=== PATIENT | female | born 1970 | race American Indian/Alaskan Native ===

== ENCOUNTER 2017-07-28 07:04 | Emergency (ER) | payer MEDICARE ==
[2017-07-28] MEDS ORDERED: ULTRAM PO ONE (07:50)
[2017-07-28] MEDS ORDERED: CATAPRES PO ONE (07:50)
[2017-07-28] MEDS ORDERED: TORADOL IV ONE (07:50)
[2017-07-28] MEDS ORDERED: TORADOL IM ONE (07:54)
--- NOTE | 2017-07-28 08:10 | Emergency Department Report ---
ED Extremity Problem HPI - General Chief complaint: Neuro Symptoms/Deficit Stated complaint: LEG/ARM PAIN Time Seen by Provider: 07/28/17 07:37 Source: patient, EMS Mode of arrival: Stretcher Limitations: Physical Limitation - History of Present Illness Initial comments: 46-year-old female with a past medical history asthma, hypertension, alcohol abuse, cocaine abuse, depression, TIAs, and elevated cholesterol presents to the hospital complaints of bilateral leg pain. Patient states since 10:30 PM last night both her legs felt tight and throbbing/burning. Pain is intermittent , rated 10/10 intensity, worse with ambulation and movement. No specific alleviating factor reported. Denies back pain, dysuria, or incontinence. Patient also has chronic right sided weakness and numbness and reports no change. Patient is currently at [facility] x 5 days after d/c from inpatient treatment and receiving treatment for substance abuse and depression. She states she has not used any substances since and enrolled in treatment. Patient presents with elevated blood pressure. Recently restarted her BP meds after being provided samples. Patient took her last dose of lisinopril/ hydrochlorothiazide 20/25mg yesterday. - Related Data Previous Rx's Medication Instructions Recorded Last Taken Type Ibuprofen [Motrin] 800 mg PO Q8HR PRN #30 tablet 07/28/17 Unknown Rx Allergies Allergy/AdvReac Type Severity Reaction Status Date / Time Sulfa (Sulfonamide Allergy Rash Verified 07/28/17 07:17 Antibiotics) ED Review of Systems ROS: Stated complaint: LEG/ARM PAIN Other details as noted in HPI Comment: All other systems reviewed and negative Other: Constitutional: No fevers chills Eyes: No eye pain visual changes ENT: No ear pain or throat pain Neck: Denies pain Respiratory: Denies cough wheezing shortness of breath Cardiovascular: Denies chest pain, palpitations, syncope GI: Denies abdominal pain : Denies dysuria Musculoskeletal: as per hpi Skin: Denies rash, lesions, erythema Neurologic: Denies headache Psychiatric: Denies suicidal ideation, hallucinations ED Past Medical Hx - Past Medical History Previous Medical History?: Yes Hx Hypertension: Yes Hx Psychiatric Treatment: Yes (ETOH abuse, cocaine abuse, depression) Hx Asthma: Yes Additional medical history: TIA's. high cholesterol - Surgical History Past Surgical History?: Yes Additional Surgical History: x4. Tubal ligation. Partial hysterectomy - Social History Smoking Status: Current Every Day Smoker Substance Use Type: Alcohol, Cocaine - Medications Home Medications: Home Medications Medication Instructions Recorded Confirmed Last Taken Type Ibuprofen [Motrin] 800 mg PO Q8HR PRN #30 tablet 07/28/17 Unknown Rx ED Physical Exam - General Limitations: Physical Limitation - Other Other exam information: General: No limitations, patient is alert in no acute distress Head exam: Atraumatic, normocephalic Eyes exam: Normal appearance, pupils equal reactive to light, extraocular movements intact ENT: Moist mucous membrane, normal oropharynx Neck exam: Normal inspection, full range of motion, no meningismus nontender Respiratory exam: Clear to auscultation bilateral, no wheezes, rales, crackles Cardiovascular: Normal rate and rhythm, normal heart sounds Abdomen: Soft, nondistended, and nontender, with normal bowel sounds, no rebound, or guarding Extremity: Full range of motion normal inspection no deformity, 2+ DP pulse, no tenderness to palpation, no edema, no calf tenderness Back: Normal Inspection, full range of motion, no tenderness Neurologic: Alert, oriented x3, cranial nerves intact, right arm and leg for 4/ 5 strength, decreased sensation on the right to light touch. Patient states these symptoms are chronic. Left arm and leg 5/5 strength. Akjomu-[id number]-[id number] function intact. No facial droop Psychiatric: normal affect, normal mood Skin: Warm, dry, intact ED Course Vital Signs 07/28/17 07/28/17 07/28/17 07:16 07:17 07:30 Temperature 98.6 F Pulse Rate 77 69 Respiratory 18 13 Rate Blood Pressure 161/105 161/105 O2 Sat by Pulse 96 99 100 Oximetry 07/28/17 07/28/17 07/28/17 08:00 08:30 08:45 Temperature Pulse Rate 70 69 69 Respiratory 13 13 10 L Rate Blood Pressure 171/109 169/114 151/101 O2 Sat by Pulse 100 97 Oximetry 07/28/17 07/28/17 07/28/17 08:46 08:50 09:00 Temperature Pulse Rate 73 Respiratory 12 12 16 Rate Blood Pressure 163/101 O2 Sat by Pulse 99 Oximetry 07/28/17 07/28/17 09:30 09:41 Temperature Pulse Rate 71 Respiratory 12 10 L Rate Blood Pressure 169/114 O2 Sat by Pulse 99 97 Oximetry - Reevaluation(s) Reevaluation #1: 07/28/17 10:09 tramadol refused, pain better with toradol ED Medical Decision Making - Lab Data Result diagrams: 07/28/17 08:12 07/28/17 08:12 Lab Results 07/28/17 07/28/17 Range/Units 08:12 08:12 WBC 6.6 (4.5-11.0) K/mm3 RBC 3.82 (3.65-5.03) M/mm3 Hgb 11.8 (10.1-14.3) gm/dl Hct 34.9 (30.3-42.9) % MCV 91 (79-97) fl MCH 31 (28-32) pg MCHC 34 (30-34) % RDW 12.8 L (13.2-15.2) % Plt Count 190 (140-440) K/mm3 Lymph % (Auto) 26.6 (13.4-35.0) % [place] % (Auto) 14.9 H (0.0-7.3) % Eos % (Auto) 1.6 (0.0-4.3) % Baso % (Auto) 1.1 (0.0-1.8) % Lymph # 1.8 (1.2-5.4) K/mm3 [place] # 1.0 H (0.0-0.8) K/mm3 Eos # 0.1 (0.0-0.4) K/mm3 Baso # 0.1 (0.0-0.1) K/mm3 Seg Neutrophils % 55.8 (40.0-70.0) % Seg Neutrophils # 3.7 (1.8-7.7) K/mm3 Sodium 141 (137-145) mmol/L Potassium 4.1 (3.6-5.0) mmol/L Chloride 103.8 (98-107) mmol/L Carbon Dioxide 29 (22-30) mmol/L Anion Gap 12 mmol/L BUN 9 (7-17) mg/dL Creatinine 0.6 L (0.7-1.2) mg/dL Estimated GFR > 60 ml/min BUN/Creatinine Ratio 15.00 % Glucose 87 (65-100) mg/dL Calcium 8.8 (8.4-10.2) mg/dL Magnesium 1.90 (1.7-2.3) mg/dL Total Creatine Kinase 97 (30-135) units/L - Medical Decision Making Patient has no signs of rhabdomyolysis. Legs nontender. Symptoms could represent alcohol induced neuropathy but patient does not describe a ascending pattern of pain. Motrin were provided for pain. Outpatient follow-up encouraged. - Differential Diagnosis radiculopathy, neuropathy, electrolyte abnormality, rhabdo Critical Care Time: No Critical care attestation.: If time is entered above; I have spent that time in minutes in the direct care of this critically ill patient, excluding procedure time. ED Disposition Clinical Impression: Bilateral leg pain, History of alcohol abuse, History of drug abuse, Depression , Chronic focal neurological deficit Disposition: DC-01 TO HOME OR SELFCARE Is pt being admited?: No Does the pt Need Aspirin: No Condition: Stable Instructions: Musculoskeletal Pain (ED) Additional Instructions: Take the medication as if her pain. Labs are normal today. It is Very important that you follow up as outpatient for further workup and evaluation. Prescriptions: Ibuprofen [Motrin] 800 mg PO Q8HR PRN #30 tablet PRN Reason: Pain Referrals: SAMAN CIFUENTES MD [Staff Physician] - 3-5 Days [facility] [Provider Group] - 3-5 Days Time of Disposition: 10:10
[2017-07-28 08:25] LABS: Basophils % (Auto) 1.1 % (0.0-1.8); Eosinophils % (Auto) 1.6 % (0.0-4.3); Hematocrit 34.9 % (30.3-42.9); Hemoglobin 11.8 gm/dl (10.1-14.3); Mean Corpuscular HGB Conc 34 % (30-34); Mean Corpuscular Hemoglobin 31 pg (28-32); Mean Corpuscular Volume 91 fl (79-97); Platelet Count 190 K/mm3 (140-440); Red Blood Count 3.82 M/mm3 (3.65-5.03); Red Cell Distribution Width 12.8 % (13.2-15.2); White Blood Count 6.6 K/mm3 (4.5-11.0)
[2017-07-28 08:37] LABS: Anion Gap 12 mmol/L; Blood Urea Nitrogen 9 mg/dL (7-17); Calcium 8.8 mg/dL (8.4-10.2); Carbon Dioxide 29 mmol/L (22-30); Chloride 103.8 mmol/L (98-107); Creatine Kinase 97 units/L (30-135); Glucose 87 mg/dL (65-100); Potassium 4.1 mmol/L (3.6-5.0); Sodium 141 mmol/L (137-145)
[2017-07-28 11:09] VITALS: BP 126/80
== END 2017-07-28 11:00 | disposition home or self-care (01) ==
LOC: ED 07:04
DX: M79.605 Pain in left leg (principal); M79.604 Pain in right leg; F32.9 Major depressive disorder, single episode, unspecified; I10 Essential (primary) hypertension; F14.10 Cocaine abuse, uncomplicated; F17.200 Nicotine dependence, unspecified, uncomplicated; J45.909 Unspecified asthma, uncomplicated; Z88.2 Allergy status to sulfonamides
CPT/HCPCS: 36415; 80048; 82550; 83735; 85025; 96374; 99284; J1885